=== PATIENT | male | born 1955 | race African-American/Black ===

== ENCOUNTER 2023-07-31 08:12 | Outpatient (CLI) | payer OTHER ==
[2023-07-31 09:53] LABS: Hematocrit 44.3 % (38.8-50.0); Hemoglobin 15.3 g/dL (13.5-17.5)
[2023-07-31 10:32] LABS: Anion Gap 16 mmol/L (10-20); BUN (Urea Nitrogen) 22 mg/dL (8.4-25.7); Calc. Creatinine Clearance 0 mL/min (70-130); Calcium 9.3 mg/dL (7.8-10.44); Carbon Dioxide 21 mmol/L (23-31); Chloride 100 mmol/L (98-107); Estimated GFR 54; Glucose 104 mg/dL (80-115); Potassium 4.4 mmol/L (3.5-5.1); Sodium 133 mmol/L (136-145)
== END 2023-07-31 08:13 | disposition home or self-care (01) ==
LOC: CSHLAB 08:12
PROVIDERS: ATTEND Otolaryngology Otolaryngic Allergy
DX: Z01.818 Encounter for other preprocedural examination (principal); K21.9 Gastro-esophageal reflux disease without esophagitis; R49.0 Dysphonia; J38.3 Other diseases of vocal cords
CPT/HCPCS: 80048; 85014; 85018; 93005; 93010

== ENCOUNTER 2023-08-06 05:12 | Day surgery (SDC) | payer OTHER ==
[2023-07-31 08:47] VITALS: BMI 33.7
[2023-08-06] MEDS ORDERED: SUGAMMADEX SODIUM 200 MG/2 ML VIAL ONE (06:18)
[2023-08-06] MEDS ORDERED: fentaNYL 50 mcg/mL 1 mL Vial ONE ×2 (06:20)
[2023-08-06] MEDS ORDERED: PROPOFOL 20 ML ONE (06:20)
[2023-08-06] MEDS ORDERED: Lidocaine 1% PF 5 ML VIAL ONE (06:20)
[2023-08-06] MEDS ORDERED: Midazolam HCl 2 mg/2 ml Vial ONE (06:20)
[2023-08-06] MEDS ORDERED: Rocuronium Bromide 10 MG/ML (10ML VIAL) ONE (06:20)
[2023-08-06] MEDS ORDERED: Ondansetron PF 4 MG/2 ML Vial ONE (06:20)
[2023-08-06] MEDS ORDERED: Dexamethasone 20 MG/5 ML VIAL ONE (06:20)
[2023-08-06] MEDS ORDERED: Lidocaine 4% Topical Sol 50 ML BOT ONE (06:31)
[2023-08-06] MEDS ORDERED: EPINEPHrine 1 MG/ML VIAL ONE (06:35)
== END 2023-08-06 09:15 | disposition home or self-care (01) ==
LOC: CSHSDC 05:12
PROVIDERS: ATTEND Otolaryngology Otolaryngic Allergy
PROC: 0CBV8ZX Excision of Left Vocal Cord, Via Natural or Artificial Opening Endoscopic, Diagnostic (ICD-10-PCS; principal; 2023-08-06)
DX: C32.0 Malignant neoplasm of glottis (principal); K21.9 Gastro-esophageal reflux disease without esophagitis; R49.0 Dysphonia; J38.3 Other diseases of vocal cords; I10 Essential (primary) hypertension
CPT/HCPCS: 88305; 88331; 88342; J0171; J1100; J2250; J2405; J2704; J3010